=== PATIENT | female | born 1980 | race African-American/Black ===

== ENCOUNTER 2018-09-09 12:18 | Inpatient (IN) | payer SELFPAY ==
[~2018-09-09] VITALS: Ht 167.6 cm; Wt 88.7 kg
[2018-09-10] MEDS ORDERED: LACTATED RINGER'S 1,000 ML IV PRN (00:16)
[2018-09-10] MEDS ORDERED: IBUPROFEN 600 MG TAB PO PRN (00:30)
[2018-09-10] MEDS ORDERED: CARBOPROST 250 MCG INJ IM PRN (00:30)
[2018-09-10] MEDS ORDERED: OXYTOCIN 30 UNITS/LR 500 ML IV PRN (00:30)
[2018-09-10] MEDS ORDERED: METHYLERGONOVINE 0.2 MG INJ IM PRN (00:30)
[2018-09-10] MEDS ORDERED: OXYTOCIN 30 UNITS/LR 500 ML IV SCH ×2 (00:30)
[2018-09-10] MEDS ORDERED: BUTORPHANOL 2 MG INJ IV PRN (00:30)
[2018-09-10] MEDS ORDERED: LIDOCAINE 1% (MPF) 30 ML INJ INJ PRN (00:30)
[2018-09-10] MEDS ORDERED: MISOPROSTOL 200 MCG TAB PR PRN (00:30)
[2018-09-10 00:31] VITALS: Ht 167.6 cm; Wt 88.7 kg
[2018-09-10] MEDS ORDERED: PREN-6 PO (00:40)
[2018-09-10] MEDS: LACTATED RINGER'S 1,000 ML IV SCH ×3 (01:28→18:54)
[2018-09-10] MEDS: MISOPROSTOL 50 MCG CAPSULE VAG PRN ×3 (01:46→21:44)
--- NOTE | 2018-09-10 12:39 | HP ---
Date/Time of Note Date/Time of Note DATE: 09/10/18 TIME: 12:36 OB - History Hx of Present Free Text/Dictation 38 years old P0000 at 38 1/7 weeks IOL secondary to assymetrical IUGR recommended delivery per Dr. De La Cruz. Now with second Cytotec cervic closed 50%, FH reassuring ctxs Q 2-3 GBS negative Plan Continue IOL 'Routine care Last Menstrual Period: December 17, 2017 Estimated Due Date: Sep 23, 2018 : 1 Care: Good Care Abnormal Ultrasound Findings: assymetrical IUGR Past Family/Social History * Past Medical, Surgical, Family and Obstetric Histories reviewed from chart. OB Admission Exam Last 72 hours Lab Results CBC & BMP 09/10/18 01:15 EVERT MCKENZIE M.D. Sep 10, 2018 12:39
--- NOTE | 2018-09-11 00:48 | PREAC ---
Date/Time of Note Date/Time of Note DATE: 09/11/18 TIME: 00:47 Anesthesia Eval and Record Evaluation Time Pre-Procedure Interview DATE: 09/11/18 TIME: 00:47 Age 38 Sex female NPO: Other (na) Preoperative diagnosis labor pain Planned procedure epidural Past Medical History Past Medical History: None Surgery & Anesthesia Issues No known issue Meds Anticoagulation: No Beta Nichole within 24 hr: No Reason Beta Nichole not given: Pt. not on B-Nichole Reported Medications Vits #93-Iron Fum-FA ( Formula) 1 Each Tablet, 1 TAB PO DAILY, TAB 09/10/18 Current Medications Lactated Ringer's 1,000 ml @ 125 mls/hr Q8H IV Last administered on 09/10/18at 18:54; Admin Dose 125 MLS/HR; Start 09/10/18 at 00:16 Butorphanol Tartrate (Stadol) 2 mg Q2H PRN IV .PAIN; Start 09/10/18 at 00:30 Lidocaine (Xylocaine 1% (Mpf)) 30 ml ONCE PRN INJ .EPISIOTOMY; Start 09/10/18 at 00:30 Oxytocin/Lactated Ringer's 500 ml @ 500 mls/hr ONCE POST IV ; Start 09/10/18 at 00:30 Oxytocin/Lactated Ringer's 500 ml @ 125 mls/hr POST IV ; Start 09/10/18 at 00:30 Ibuprofen (Motrin) 600 mg ONCE PRN PO .PAIN 1-5; Start 09/10/18 at 00:30 Lactated Ringer's 1,000 ml @ 2,000 mls/hr Q30M PRN IV .ANESTHESIA; Start 09/10/18 at 00:16 Oxytocin/Lactated Ringer's 500 ml @ 0 mls/hr ONCE PRN IV .VAGINAL BLEEDING; Start 09/10/18 at 00:30 Methylergonovine Maleate (Methergine) 0.2 mg ONCE PRN IM .VAGINAL BLEEDING; Start 09/10/18 at 00:30 Carboprost Tromethamine (Hemabate) 250 mcg ONCE PRN IM .VAGINAL BLEEDING; Start 09/10/18 at 00:30 Misoprostol (Cytotec) 1,000 mcg ONCE PRN PA .VAGINAL BLEEDING; Start 09/10/18 at 00:30 Oxytocin/Lactated Ringer's 500 ml @ 0 mls/hr FOR INDUCTION IV ; Start 09/11/18 at 01:00 Meds reviewed: Yes Allergies Coded Allergies: Milk Containing Products (Verified Adverse Reaction, Unknown, N&V, 09/10/18) Allergies Reviewed: Yes Labs/Studies Labs Reviewed: Reviewed by anesthesiologist Result Diagram: 09/10/18 0115 Laboratory Tests 09/10/18 01:15 Blood Bank Test 09/10/18 01:15 Antibody Screen NEGATIVE Blood Type O POSITIVE Rh Immune Globulin Candidate NO test: N/A Pre-procedure Exam Airway: Adequate mouth opening, Adequate thyromental dist Mallampati: Mallampati III Teeth: Normal Lung: Normal Heart: Normal ASA Physical Status ASA physical status: 2 Emergency: None Pre-operative Attestations Prior to commencing anesthesia and surgery, the patient was re-evaluated, there was verification of: *The patient's identity *The results of appropriate recent lab work and preoperative vital signs *The above evaluation not changing prior to induction *Anesthetic plan, risk benefits, alternative and complications discussed with patient/family; questions answered; patient/family understands, accepts and wishes to proceed. DERRICK WHITMORE DO Sep 11, 2018 00:48
[2018-09-11] MEDS ORDERED: FENTAnyl 2MCG/ML-ROPIV 0.2% 100 ML ONE (00:51)
[2018-09-11] MEDS ORDERED: FENTAnyl 2MCG/ML-ROPIV 0.2% 100 ML BAG EPI SCH (01:00)
[2018-09-11] MEDS ORDERED: OXYTOCIN 30 UNITS/LR 500 ML IV SCH ×2 (01:00→09:30)
[2018-09-11] MEDS ORDERED: NALOXONE (0.4 MG/ML) INJ IV PRN (01:00)
--- NOTE | 2018-09-11 01:27 | PAC ---
Date/Time of Note Date/Time of Note DATE: 09/11/18 TIME: 01:26 Post-Anesthesia Notes Post-Anesthesia Note Last documented vital signs 120/65 75 98% 12 Activity: WNL Respiratory function: WNL Cardiovascular function: WNL Mental status: Baseline Pain reasonably controlled: Yes Hydration appropriate: Yes Nausea/Vomiting absent: Yes DERRICK WHITMORE DO Sep 11, 2018 01:27
[2018-09-11] MEDS: LACTATED RINGER'S 1,000 ML IV SCH ×3 (01:30→16:16)
--- NOTE | 2018-09-11 08:08 | QN ---
Documentation Comment Pt is FD/100%+1 Plan start pushing EVERT MCKENZIE M.D. Sep 11, 2018 08:08
[2018-09-11] MEDS ORDERED: MINERAL OIL LIGHT 10 ML VIAL TOP PRN (08:20)
[2018-09-11] MEDS ORDERED: ONDANSETRON 4 MG INJ ONE (09:26)
[2018-09-11] MEDS ORDERED: HYDROCODONE/APAP (5/325) TAB PO PRN ×2 (09:30)
[2018-09-11] MEDS ORDERED: MISOPROSTOL 200 MCG TAB PR PRN (09:30)
[2018-09-11] MEDS ORDERED: LANOLIN HPA 1 PKT TOP PRN (09:30)
[2018-09-11] MEDS ORDERED: CARBOPROST 250 MCG INJ IM PRN (09:30)
[2018-09-11] MEDS ORDERED: WITCH HAZEL/GLYCERIN PAD PR PRN (09:30)
[2018-09-11] MEDS ORDERED: NACL 0.9% 3 ML SYG IV SCH (09:30)
[2018-09-11] MEDS ORDERED: METHYLERGONOVINE 0.2 MG INJ IM PRN (09:30)
[2018-09-11] MEDS ORDERED: OXYTOCIN 30 UNITS/LR 500 ML IV PRN (09:30)
[2018-09-11] MEDS ORDERED: ONDANSETRON 4 MG INJ IV PRN ×2 (09:30)
--- NOTE | 2018-09-11 09:35 | LDN ---
Date/Time of Note Date/Time of Note DATE: 09/11/18 TIME: 09:32 Delivery Summary pt fully dilated pushed to deliver a viable baby boy 9/9. Nose and mouth were suctioned [facility] pplacenta delivered spontanously. Pit methirgine and hemmabate given secondary to uterine atony. 2 degree sulcus tears repaired using 2-0 chromic EBL 350 cc 1 gauze left at the perinieum to be removed in one hour Weeks of Gestation 38 Placenta Delivered: Spontaneously Meconium: none Episiotomy: No Anesthesia type: Epidural Estimated blood loss: 350 Sponge & Needle done & correct: Yes All needle counts correct: Yes EVERT MCKENZIE M.D. Sep 11, 2018 09:35
[2018-09-11] MEDS: IBUPROFEN 600 MG TAB PO SCH ×3 (12:00→23:36)
[2018-09-11 16:00] VITALS: BP 117/58; PULSE 79; RESP 20
[2018-09-11 20:15] VITALS: BP 101/58; PULSE 76; RESP 18
[2018-09-11] MEDS ORDERED: SENNA/DOCUSATE NA (8.6MG/50MG) TAB PO SCH (21:00)
[2018-09-12 00:30] VITALS: BP 134/74; PULSE 77; RESP 18
[2018-09-12 04:30] VITALS: BP 109/65; PULSE 77; RESP 18
[2018-09-12] MEDS: IBUPROFEN 600 MG TAB PO SCH (05:41)
[2018-09-12 08:00] VITALS: BP 106/63; PULSE 72; RESP 20
--- NOTE | 2018-09-12 08:51 | DS ---
Date/Time of Note Date/Time of Note DATE: 09/12/18 TIME: 08:50 Obstetrical Discharge Record Final Diagnosis Final Diagnosis: Term delivered Other Final Diagnosis Pt feeling well no concerns exam WNL CBC WNL Vaginal Delivery Obstetrical Delivery: Spontaneous Complications Induction: Yes Condition on Discharge Physical Assessment Voiding: Yes Bowel Movement: Yes Breast: Soft, non-tender Fundus: Firm Calf Tenderness: No Patient Condition: Good EVERT MCKENZIE M.D. Sep 12, 2018 08:51
== END 2018-09-12 12:56 | disposition home or self-care (01) | DRG 807 ==
LOC: L-D 22:21 → PP1 09-11 15:38
PROVIDERS: ADMIT Obstetrics & Gynecology; ATTEND Obstetrics & Gynecology
PROC: 3E0P7VZ Introduction of Hormone into Female Reproductive, Via Natural or Artificial Opening (ICD-10-PCS; 2018-09-10)
PROC: 10E0XZZ Delivery of Products of Conception, External Approach (ICD-10-PCS; principal; 2018-09-11)
PROC: 0KQM0ZZ Repair Perineum Muscle, Open Approach (ICD-10-PCS; 2018-09-11)
DX: O36.5930 Maternal care for other known or suspected poor fetal growth, third trimester, not applicable or unspecified (principal); Z37.0 Single live birth; O75.89 Other specified complications of labor and delivery; O70.1 Second degree perineal laceration during delivery; Z3A.38 38 weeks gestation of pregnancy
CPT/HCPCS: 62319; 85014; 85018; 85025; 85610; 85730; 86592; 86850; 86900; 86901; 87340; J2210; J2405; J2590; J3010; J7120